=== PATIENT | female | born 1995 | race Caucasian/White ===

== ENCOUNTER 2018-09-09 19:22 | Emergency (ER) | payer OTHER, SELFPAY ==
[2018-09-09 21:33] LABS: Bilirubin Negative (Negative); Blood, Urine Negative (Negative); Clarity CLEAR (Clear); Glucose, Urine (Dipstick) Negative (Negative); Leukocyte Small (Negative); Nitrite Negative (Negative); Protein, Urine (Dipstick) Negative (Neg-Trace); Specific Gravity, Urine 1.016 (1.002-1.036)
[2018-09-09 21:34] LABS: Bacteria/HPF None Seen HPF (None Seen); Hyaline Casts/LPF 0-3 HYALINE CAST LPF (0-3 Hyaline); Pathc Cast-AUWi Flag 0.43 (0-2.49); RBC/HPF 0-3 HPF (0-3); Squamous Epithelial 0-3 HPF (0-3); WBC/HPF 0-3 HPF (0-3)
[2018-09-09 22:24] LABS: #Basophils 0.1 thou/uL (0.0-0.2); #Eosinphils 0.1 thou/uL (0.0-0.7); #Lymphocytes 2.5 thou/uL (1.20-3.40); #Monocytes 0.8 thou/uL (0.11-0.59); #Neutrophils 8.3 thou/uL (1.40-6.50); %Basophils 0.5 % (0.0-1.0); %Eosinophils 0.6 % (0.0-10.0); %Monocytes 6.5 % (0.0-10.0); %Neutrophils 71.3 % (42.0-75.0); Hemoglobin 14.2 g/dL (12.0-16.0); Mean Corpuscular HGB CONC 33.6 g/dL (32.0-36.0); Mean Corpuscular Hemoglobin 30.9 pg (27.0-31.0); Mean Corpuscular Volume 91.8 fL (78.0-98.0); Mean Platelet Volume 7.8 fL (7.4-10.4); Platelet Count 242 thou/uL (130-400); RBC Distribution Width 11.5 % (11.5-14.5); Red Blood Cell (RBC) Count 4.61 mill/uL (4.20-5.40); White Blood Cell (WBC) Count 11.7 thou/uL (4.8-10.8)
--- NOTE | 2018-09-09 23:17 | ULT ---
OBSTETRIC SONOGRAM WITH DUPLEX EVALUATION: 09/09/18 HISTORY: Early . Pain and bleeding. FINDINGS: Uterus measures up to 10.0 cm. Endometrial cavity contains two poles. Heart motion at 153 and 1 43 beats per minute. Measurements correlate with 7 weeks, 6 days and 7 weeks, 2 days gestational ages . Small yolk sacs are apparent. No free fluid in the pelvis. Right ovary is 3.0 cm and left is 3.2 cm. Good color and spectral doppler flow within each ovary. Dom inant follicle of the left ovary measures up to 3.1 cm. IMPRESSION: Twin intrauterine gestation with estimated ages of 7 weeks, 6 days and 7 weeks, 2 days. No evidence o f complication. Septated 3.1 cm left ovarian cyst. POS: [facility]
[2018-09-11 19:23] LABS: Chlamydia by PCR Not Detected (NotDetected); GC by PCR Not Detected (NotDetected)
== END 2018-09-10 00:07 | disposition home or self-care (01) ==
LOC: ERS 19:22
DX: O99.89 Other specified diseases and conditions complicating pregnancy, childbirth and the puerperium (principal); R10.30 Lower abdominal pain, unspecified; O99.341 Other mental disorders complicating pregnancy, first trimester; F32.9 Major depressive disorder, single episode, unspecified; F41.9 Anxiety disorder, unspecified; O99.331 Smoking (tobacco) complicating pregnancy, first trimester; F17.210 Nicotine dependence, cigarettes, uncomplicated; Z3A.01 Less than 8 weeks gestation of pregnancy
CPT/HCPCS: 36415; 36416; 76856; 81003; 81015; 84702; 85025; 86900; 86901; 87480; 87491; 87510; 87591; 87660

== ENCOUNTER 2018-09-27 02:21 | Emergency (ER) | payer OTHER ==
[2018-09-27 03:07] LABS: #Eosinphils 0.1 thou/uL (0.0-0.7); #Lymphocytes 2.6 thou/uL (1.20-3.40); #Monocytes 0.8 thou/uL (0.11-0.59); #Neutrophils 9.9 thou/uL (1.40-6.50); %Basophils 0.1 % (0.0-1.0); %Eosinophils 0.8 % (0.0-10.0); %Lymphocytes 19.3 % (21.0-51.0); %Monocytes 5.8 % (0.0-10.0); Hemoglobin 13.1 g/dL (12.0-16.0); Mean Corpuscular HGB CONC 34.7 g/dL (32.0-36.0); Mean Corpuscular Hemoglobin 31.6 pg (27.0-31.0); Mean Corpuscular Volume 91.1 fL (78.0-98.0); Platelet Count 248 thou/uL (130-400); RBC Distribution Width 11.5 % (11.5-14.5); Red Blood Cell (RBC) Count 4.15 mill/uL (4.20-5.40); White Blood Cell (WBC) Count 13.3 thou/uL (4.8-10.8)
[2018-09-27 03:17] LABS: Bilirubin Negative (Negative); Blood, Urine Negative (Negative); Clarity CLEAR (Clear); Glucose, Urine (Dipstick) Negative (Negative); Leukocyte Negative (Negative); Nitrite Negative (Negative); Protein, Urine (Dipstick) Negative (Neg-Trace); Specific Gravity, Urine 1.022 (1.002-1.036); Urobilinogen 0.2 mg/dL (0.2-1.0)
[2018-09-27 03:29] LABS: ALT (SGPT) 9 U/L (8-55); AST (SGOT) 11 U/L (5-34); Albumin 4.1 g/dL (3.5-5.0); Alkaline Phosphatase 71 U/L (40-150); Anion Gap 11 mmol/L (10-20); BUN (Urea Nitrogen) 12 mg/dL (7.0-18.7); Bilirubin, Total 0.2 mg/dL (0.2-1.2); Calc. Creatinine Clearance 0 mL/min (70-130); Calcium 9.5 mg/dL (7.8-10.44); Carbon Dioxide 21 mmol/L (22-29); Chloride 109 mmol/L (98-107); Estimated GFR-MDRD Greater than 90; Globulin 2.9 g/dL (2.4-3.5); Glucose 91 mg/dL (70-105); Potassium 3.4 mmol/L (3.5-5.1); Sodium 138 mmol/L (136-145)
[2018-09-27] MEDS ORDERED: Dicyclomine 20 MG TAB ONE (04:00)
[2018-09-27] MEDS ORDERED: Acetaminophen 500 MG TAB ONE (04:45)
[2018-09-27] MEDS ORDERED: Metoclopramide HCl 10 MG TAB ONE (04:45)
--- NOTE | 2018-09-27 08:34 | ULT ---
PRELIMINARY REPORT/[facility]/EMERGENTY AFTER-HOURS PROCEDURE US First Trimester, Transabdominal US First Trimester Additional Gestation, Transabdominal US Duplex Arterial/Venous of the Pelvis, Limited CLINICAL HISTORY: 23 years old, female; Pain; Other: Cramping at 10wks- twins; ; Patient HX: [place]/ di twins by prev scan TECHNIQUE: Real-time transabdominal obstetrical ultrasound of the maternal pelvis and a first trimester pregnanc y with image documentation. Real-time transabdominal obstetrical ultrasound with image documentation of the maternal pelvis and a n additional first trimester . Real-time duplex ultrasound scan of the pelvis integrating B-mode two-dimensional vascular structure, Doppler spectral analysis and color flow Doppler imaging. COMPARISON: No relevant prior studies available. FINDINGS: Transabdominal obstetrical ultrasound was performed. Duplex ultrasound scan with color Doppler flow a nd spectral waveform analysis was also performed for evaluation of pelvic and ovarian blood flow and torsion. There appears to be monochorionic diamniotic twin intrauterine with thin intertwin membrane . Fetus A Gestation: Living intrauterine gestation. heart rate 169 beats per minute. CRL 3.33 cm, 10w2d. Yolk sac visualized. Placenta/amniotic fluid: Cannot be adequately evaluated due to the early gestational age. Fetus B Gestation: Living intrauterine gestation. heart rate 152 beats per minute. CRL 3.21 cm, 10w1d. Placenta/amniotic fluid: Cannot be adequately evaluated due to the early gestational age. Uterus/cervix: No acute findings. No myometrial mass. Right ovary: No acute findings. No mass. Normal blood flow. No evidence of torsion. Left ovary: Left ovarian probable corpus luteum. Otherwise no mass. Free fluid: No free fluid. IMPRESSION: Viable twin intrauterine described above. No acute findings. Thank you for allowing us to participate in the care of your patient. Dictated and Authenticated by: Diomedes Bunn MD 09/27/2018 4:24 AM Central Time ([place] & [place]) FINAL REPORT OBSTETRIC SONOGRAM 1ST TRIMESTER TRANSABDOMINAL IMAGING DATE: 09/27/2018. TIME: Performed on an emergency basis at 0310 hours. HISTORY: Early . Pelvic pain. FINDINGS: Agree with the preliminary report by Dr. Bunn from [facility]. Twin intrauterine gestation i s confirmed with estimated gestational ages of 10 weeks 2 days and 10 weeks 1 day. No significant ab normalities are demonstrated. POS: [facility]
== END 2018-09-27 05:00 | disposition home or self-care (01) ==
LOC: ERS 02:21
DX: O99.89 Other specified diseases and conditions complicating pregnancy, childbirth and the puerperium (principal); R10.9 Unspecified abdominal pain; O99.331 Smoking (tobacco) complicating pregnancy, first trimester; F17.210 Nicotine dependence, cigarettes, uncomplicated; Z71.6 Tobacco abuse counseling; Z3A.10 10 weeks gestation of pregnancy
CPT/HCPCS: 76856; 80053; 81003; 84702; 85025; 87086; 99406

== ENCOUNTER 2018-10-18 21:31 | Emergency (ER) | payer OTHER ==
[2018-10-18 22:04] LABS: Bilirubin Negative (Negative); Blood, Urine Negative (Negative); Clarity CLEAR (Clear); Glucose, Urine (Dipstick) Negative (Negative); Leukocyte Negative (Negative); Nitrite Negative (Negative); Protein, Urine (Dipstick) Negative (Neg-Trace); Specific Gravity, Urine 1.006 (1.002-1.036); Urobilinogen 0.2 mg/dL (0.2-1.0)
[2018-10-18 22:21] LABS: #Eosinphils 0.1 thou/uL (0.0-0.7); #Lymphocytes 2.3 thou/uL (1.20-3.40); #Monocytes 0.6 thou/uL (0.11-0.59); #Neutrophils 7.7 thou/uL (1.40-6.50); %Basophils 0.4 % (0.0-1.0); %Eosinophils 1.2 % (0.0-10.0); %Lymphocytes 21.6 % (21.0-51.0); %Monocytes 5.2 % (0.0-10.0); %Neutrophils 71.7 % (42.0-75.0); Mean Corpuscular HGB CONC 34.4 g/dL (32.0-36.0); Mean Corpuscular Hemoglobin 31.6 pg (27.0-31.0); Mean Corpuscular Volume 91.7 fL (78.0-98.0); Mean Platelet Volume 7.6 fL (7.4-10.4); Platelet Count 225 thou/uL (130-400); RBC Distribution Width 11.5 % (11.5-14.5); White Blood Cell (WBC) Count 10.7 thou/uL (4.8-10.8)
[2018-10-18 22:44] LABS: ALT (SGPT) 9 U/L (8-55); AST (SGOT) 12 U/L (5-34); Albumin 3.9 g/dL (3.5-5.0); Alkaline Phosphatase 74 U/L (40-150); Anion Gap 11 mmol/L (10-20); BUN (Urea Nitrogen) 6 mg/dL (7.0-18.7); Bilirubin, Total 0.3 mg/dL (0.2-1.2); Calc. Creatinine Clearance 0 mL/min (70-130); Calcium 9.2 mg/dL (7.8-10.44); Carbon Dioxide 21 mmol/L (22-29); Chloride 108 mmol/L (98-107); Estimated GFR-MDRD Greater than 90; Globulin 3.2 g/dL (2.4-3.5); Glucose 96 mg/dL (70-105); Potassium 3.3 mmol/L (3.5-5.1); Protein, Total 7.1 g/dL (6.0-8.3); Sodium 137 mmol/L (136-145)
[2018-10-18] MEDS ORDERED: Ondansetron PF 4 MG/2 ML Vial ONE (22:48)
[2018-10-18] MEDS ORDERED: Potassium Chloride 20 MEQ TAB ONE (22:48)
== END 2018-10-18 23:55 | disposition home or self-care (01) ==
LOC: ERS 21:31
DX: O99.281 Endocrine, nutritional and metabolic diseases complicating pregnancy, first trimester (principal); E87.6 Hypokalemia; E86.0 Dehydration; O99.89 Other specified diseases and conditions complicating pregnancy, childbirth and the puerperium; R10.30 Lower abdominal pain, unspecified; Z3A.13 13 weeks gestation of pregnancy
CPT/HCPCS: 36415; 80053; 81003; 84702; 85025; 96361; 96374; J2405

== ENCOUNTER 2018-10-30 17:21 | Emergency (ER) | payer OTHER ==
[2018-10-30 18:02] LABS: #Eosinphils 0.2 thou/uL (0.0-0.7); #Lymphocytes 1.8 thou/uL (1.20-3.40); #Monocytes 0.5 thou/uL (0.11-0.59); #Neutrophils 8.1 thou/uL (1.40-6.50); %Basophils 0.2 % (0.0-1.0); %Eosinophils 1.5 % (0.0-10.0); %Lymphocytes 17.3 % (21.0-51.0); %Monocytes 4.3 % (0.0-10.0); %Neutrophils 76.7 % (42.0-75.0); Hemoglobin 11.9 g/dL (12.0-16.0); Mean Corpuscular HGB CONC 35.1 g/dL (32.0-36.0); Mean Corpuscular Hemoglobin 31.9 pg (27.0-31.0); Mean Corpuscular Volume 90.7 fL (78.0-98.0); Mean Platelet Volume 7.8 fL (7.4-10.4); Platelet Count 225 thou/uL (130-400); RBC Distribution Width 11.5 % (11.5-14.5); Red Blood Cell (RBC) Count 3.75 mill/uL (4.20-5.40); White Blood Cell (WBC) Count 10.5 thou/uL (4.8-10.8)
[2018-10-30 18:44] LABS: Bilirubin Negative (Negative); Blood, Urine Negative (Negative); Clarity CLEAR (Clear); Glucose, Urine (Dipstick) Negative (Negative); Leukocyte Negative (Negative); Nitrite Negative (Negative); Protein, Urine (Dipstick) Negative (Neg-Trace); Specific Gravity, Urine 1.007 (1.002-1.036); Urobilinogen 0.2 mg/dL (0.2-1.0)
== END 2018-10-30 19:22 | disposition home or self-care (01) ==
LOC: ERS 17:21
DX: O46.92 Antepartum hemorrhage, unspecified, second trimester (principal); Z3A.15 15 weeks gestation of pregnancy; O99.332 Smoking (tobacco) complicating pregnancy, second trimester; F17.210 Nicotine dependence, cigarettes, uncomplicated
CPT/HCPCS: 36415; 81003; 85025; 86900; 86901

== ENCOUNTER 2018-11-26 15:39 | Day surgery (SDC) | payer BC, OTHER ==
[2018-11-26 16:25] VITALS: BMI 33.6
--- NOTE | 2018-11-26 17:05 | PDOC.LDHP ---
Labor and Delivery H&P Chief complaint: other (Left upper quag pain at 18 weeks 6 days, twins) HPI: Patient of Dr Castillo' Location: L&D CC: Left upper quad discomfort, no real contractions HPI: 23 yo SAB1 (10 weeks) with known twins here for LLQ pain. No VB, no LOF, no fevers. Good FM. Known twin gestation Review of Systems: as per HPI Current gestational age (weeks): 18 (6 days) Grav: 4 Para: 2 OB History Details: SAB x 1 with D&C Current complications: other (Twins. rec not here) Past Medical History: Migraine HX Current medications: pre-nichole vitamins Previous surgical history: other (D&C) Allergies/Adverse Reactions: Allergies Allergy/AdvReac Type Severity Reaction Status Date / Time morphine Allergy Severe Anaphylaxis Verified 11/26/18 16:22 - Physical Exam Vital signs reviewed and normal: yes (116/64 afebrile) General: NAD Heart: RRR Lungs: CTAB Abdomen: gravid - Assessment Twins at 18 weeks 6 days with LLQ pain NOS - Plan Plan: observation in L&D (I have ordered CMP and cervical length as part of my eval. No evidence of RUQ pain so I did not order that sono. CX length will check for any shortening. No HX PTB. I have ordered 1 liter LR for conservative care (hydration).)
[2018-11-26] MEDS: Lactated Ringer's 1,000 ML IV SCH ×2 (17:21→18:23)
[2018-11-26 18:06] LABS: ALT (SGPT) 14 U/L (8-55); AST (SGOT) 13 U/L (5-34); Albumin 3.8 g/dL (3.5-5.0); Alkaline Phosphatase 90 U/L (40-150); Anion Gap 12 mmol/L (10-20); BUN (Urea Nitrogen) 5 mg/dL (7.0-18.7); Bilirubin, Total 0.3 mg/dL (0.2-1.2); Calc. Creatinine Clearance 223 mL/min (70-130); Calcium 9.1 mg/dL (7.8-10.44); Carbon Dioxide 19 mmol/L (22-29); Chloride 110 mmol/L (98-107); Estimated GFR-MDRD Greater than 90; Globulin 2.8 g/dL (2.4-3.5); Glucose 83 mg/dL (70-105); Potassium 3.5 mmol/L (3.5-5.1); Protein, Total 6.6 g/dL (6.0-8.3); Sodium 137 mmol/L (136-145)
--- NOTE | 2018-11-26 18:27 | PDOC.EVN ---
Event Note - Event Note Event Note: CMP normal
--- NOTE | 2018-11-26 18:40 | ULT ---
LIMITED OB ULTRASOUND 11/26/18 INDICATION: Evaluation for cervical length and cardiac activity, twin intrauterine gestation. FINDINGS: There is a live twin intrauterine gestation with cardiac activity documented for each twin, twi n A 139 beats per minute and twin B 140 beats per minute. The amniotic fluid volume is subjectively n ormal. Dedicated anatomic surveys are not performed. Cervical length is documented at 3.3 cm. The visualized placenta is located posteriorly. No discrete evidence for placenta previa. IMPRESSION: Live twin intrauterine gestation. Cervical length documented at 3.3 cm. As necessary, imaging followup may be obtained. POS: [facility]
--- NOTE | 2018-11-26 19:52 | PDOC.EVN ---
Event Note - Event Note Event Note: CX normal at 3.2cm OK for DC to home
== END 2018-11-26 20:05 | disposition home or self-care (01) ==
LOC: L&D/OP 15:39
PROVIDERS: ATTEND Obstetrics & Gynecology
DX: O99.89 Other specified diseases and conditions complicating pregnancy, childbirth and the puerperium (principal); R10.32 Left lower quadrant pain; O30.002 Twin pregnancy, unspecified number of placenta and unspecified number of amniotic sacs, second trimester; O99.352 Diseases of the nervous system complicating pregnancy, second trimester; G43.909 Migraine, unspecified, not intractable, without status migrainosus; Z3A.18 18 weeks gestation of pregnancy; Z79.82 Long term (current) use of aspirin; Z79.899 Other long term (current) drug therapy; Z88.5 Allergy status to narcotic agent
CPT/HCPCS: 36415; 76815; 80053; 96360; 96361; 99282

== ENCOUNTER 2018-12-08 18:33 | Day surgery (SDC) | payer BC, OTHER ==
[2018-12-08 19:10] VITALS: BMI 33.4
--- NOTE | 2018-12-08 19:33 | PDOC.EVN ---
Event Note - Event Note Event Note: H&P Dictated on 12/08/18 at 1923 Here for vaginal pressure, known twins at 20 weeks 4 days Patient seen at bedside
[2018-12-08 20:47] LABS: Bilirubin Negative (Negative); Blood, Urine Negative (Negative); Clarity CLOUDY (Clear); Glucose, Urine (Dipstick) Negative (Negative); Leukocyte Small (Negative); Nitrite Negative (Negative); Protein, Urine (Dipstick) Negative (Neg-Trace); Urobilinogen 0.2 mg/dL (0.2-1.0)
[2018-12-08 20:49] LABS: Bacteria/HPF None Seen HPF (None Seen); Hyaline Casts/LPF 0-3 HYALINE CAST LPF (0-3 Hyaline); RBC/HPF 0-3 HPF (0-3); Squamous Epithelial 0-3 HPF (0-3); WBC/HPF 0-3 HPF (0-3)
--- NOTE | 2018-12-08 20:59 | PDOC.EVN ---
Event Note - Event Note Event Note: Sono with CX 4cm...I relayed the info to the patient. UA pending.
--- NOTE | 2018-12-08 20:59 | PDOC.EVN ---
Event Note - Event Note Event Note: UA negative...not impressive for UTI OK for outpatient follow up
--- NOTE | 2018-12-08 21:13 | ULT ---
ULTRASOUND OBSTETRICAL LIMITED: 12/08/18 at 8:20 p.m. HISTORY: 23-year-old female with twin second trimester gestation presents with low abdominal/pelvic pressure t ype of pain. FINDINGS: Maternal cervix: 4.5 cm in length and closed. No placenta previa. Twin A: (closest to cervix): lie: Breech. Maternal left. heart rate: 141 bpm. Twin B: lie: Cephalic. Maternal right. heart rate: 158 bpm. IMPRESSION: 1. Second trimester twin gestation. 2. Maternal cervix is closed and 4.5 cm in length. POS: [facility]
--- NOTE | 2018-12-09 01:27 | HP ---
TIME OF EVALUATION: 1914. LOCATION: Labor and Delivery Triage in Bed A. CHIEF COMPLAINT: 20 weeks' monochorionic diamniotic twins with pelvic pressure. This is a patient of Dr. Castillo. HISTORY OF PRESENT ILLNESS: This is a 23-year-old , 4, para 2, with (spontaneous vaginal delivery) x2 in the past, with a SAB x1 in the past, who is now at 20 weeks and 4 days, who also has a known monochorionic diamniotic gestation. She sees Dr. Castillo at the office. She was concerned because she was having vaginal pressure, but no leakage of fluid, no vaginal bleeding, and no recent trauma. No recent intercourse. She does feel baby moving, but is not able to distinguish one from the other at this time. REVIEW OF SYSTEMS: Complete review of systems was checked and is otherwise negative unless specified in the HPI. PAST MEDICAL HISTORY: Otherwise unremarkable. PAST SURGICAL HISTORY: None. ALLERGIES: MORPHINE. PAST OBSTETRICAL HISTORY: Significant for vaginal deliveries x2. PHYSICAL EXAMINATION: VITAL SIGNS: She is afebrile and normotensive with a blood pressure of 112/70. GENERAL: Clinically, she is in no acute distress. ABDOMEN: Soft, nontender, and size appropriate for gestational age, although the uterus is slightly larger due to the twins at about 23 weeks or so. PELVIC: Exam was deferred and on hold pending the evaluations that we will discuss. heart tones by Doppler are noted x2. INTERVENTIONS ORDERED: I have ordered a vaginal cervical length as well as a clean-catch urine for urinalysis. ASSESSMENT: This is a multigravida, who is at 20 weeks and 4 days with vaginal pressure with known monochorionic diamniotic twins. My index of suspicion for true labor at this time is low. PLAN: 1. Transvaginal ultrasound. 2. She is out of the gestational age range for fibronectin which usually begins at about 23 weeks' gestation or so. 3. I have ordered an ultrasound to confirm the heart tones x2. 4. I will do a cervical ultrasound length and if normal, she has a decreased risk of imminent delivery in the next 7-10 days. 5. The patient declines a catheterized urine, so we will do a clean-catch for urinalysis. Job ID: [id number]
== END 2018-12-08 21:15 | disposition home or self-care (01) ==
LOC: L&D/OP 18:33
PROVIDERS: ATTEND Obstetrics & Gynecology
DX: O99.89 Other specified diseases and conditions complicating pregnancy, childbirth and the puerperium (principal); R10.2 Pelvic and perineal pain; O32.1XX1 Maternal care for breech presentation, fetus 1; O30.032 Twin pregnancy, monochorionic/diamniotic, second trimester; Z3A.20 20 weeks gestation of pregnancy; Z79.82 Long term (current) use of aspirin; Z79.899 Other long term (current) drug therapy; Z88.5 Allergy status to narcotic agent
CPT/HCPCS: 76815; 81003; 81015; 99282

== ENCOUNTER 2019-01-09 19:27 | Day surgery (SDC) | payer BC, OTHER ==
[2019-01-09 20:39] VITALS: BP 119/72; TEMP 98.7
--- NOTE | 2019-01-09 20:39 | PDOC.LDHP ---
Labor and Delivery H&P Chief complaint: other (S/P fall against bathtub as she was taking her child a bath, hit abdomen on side) HPI: CC: fall unto side in Bathroom at 1855 Location: L&D Triage Time: [address] Castillo Patient with known twins, [place] HPI: 23 yo W x 2 in past now at 25 weeks 1 day with EDC 04/23/19 (or maybe 04/25) s/p minor fall onto side as she slipped in bathroom, hit side against tub edge. Loss of possible urine at the time of slip, no large gush of water, no further leakage, no VB. No contractions, but some cramping. Denies head trauma or partner violence. Review of Systems: Completed and as per HPI Current gestational age (weeks): 25 (1 day) Due date: 04/23/19 Dating criteria: last menstrual period Grav: 4 Para: 2 OB History Details: x 2, D&C for SAB March 2018 Current complications: mono/di twins Abnormal US findings: No Current medications: pre- vitamins Previous surgical history: other (D&C) Allergies/Adverse Reactions: Allergies Allergy/AdvReac Type Severity Reaction Status Date / Time morphine Allergy Severe Anaphylaxis Verified 11/26/18 16:22 Social history: none - Physical Exam Vital signs reviewed and normal: yes (110s/60s Pulse 80s) General: NAD Heart: RRR Lungs: CTAB Abdomen: other (no contusions; FHTS by opplers 130/140s) Extremeties: no edema [place] contractions every: none - Assessment [place] twins at 25 weeks s/p fall onto side at 1900 or so. Possible leak of urine x 1 at time of fall, no continued leakage - Plan Plan: observation in L&D (I have seen and evaluated the patient. I have called for: RH type, cervical length check (although ACOG states CL checks in twins may not be useful- I ordered it to be conservative); Amnisure (I do not suspect ROM as HX most compatible with loss of urine at incident)- I will continue to monitor. Sono will also check and confirm 2 FHTs. Per ACOG, FFN not well studieed in twins, and my index of suspcion for PTL is very low. We will normally OBS for 6 hours, but in this case, 6 hours will be 304AM. To not send her home in early AM hours, we will monitor overnight until 0600. This was reviewed with the patient in detail.)
[2019-01-09 20:51] LABS: Amnisure Internal Control QC ACCEPTABLE (ACCEPTABLE); Amnisure Test No Membranes Rupture (No Rupture)
--- NOTE | 2019-01-09 20:52 | PDOC.EVN ---
Event Note - Event Note Event Note: Amnisure collected with blood tinged contamination on swab, concerned may be false pos. Await results...if pos...we will SSE to eval.
--- NOTE | 2019-01-09 20:55 | PDOC.EVN ---
Event Note - Event Note Event Note: is negative, as expected
[2019-01-09 20:56] VITALS: BMI 52.9
--- NOTE | 2019-01-09 21:48 | PDOC.EVN ---
Event Note - Event Note Event Note: Sono with cervical length greater than 3, mnax 4cm FHTs x 2 normal x 2
--- NOTE | 2019-01-09 22:14 | ULT ---
OB ULTRASOUND LIMITED: HISTORY: Twin . Status post fall. FINDINGS: The cervical length measures 3.3 cm. A live intrauterine twin is seen. Twin A is to the m aternal left, and twin B is to the maternal right. Twin A has a vertex presentation, and twin B has a breech presentation. The heart rate of twin A is 145 beats per minute, and twin B is 139 gena ts per minute. The placenta is posterior. IMPRESSION: Live intrauterine twin . POS: [facility]
--- NOTE | 2019-01-09 23:00 | PDOC.EVN ---
Event Note - Event Note Event Note: RH pos
== END 2019-01-10 06:00 | disposition home or self-care (01) ==
LOC: L&D/OP 19:27
PROVIDERS: ATTEND Obstetrics & Gynecology
DX: O99.89 Other specified diseases and conditions complicating pregnancy, childbirth and the puerperium (principal); R10.9 Unspecified abdominal pain; O30.032 Twin pregnancy, monochorionic/diamniotic, second trimester; Z3A.25 25 weeks gestation of pregnancy; Z79.82 Long term (current) use of aspirin; Z79.899 Other long term (current) drug therapy; Z88.5 Allergy status to narcotic agent; W01.198A Fall on same level from slipping, tripping and stumbling with subsequent striking against other object, initial encounter; Y93.89 Activity, other specified; Y92.002 Bathroom of unspecified non-institutional (private) residence as the place of occurrence of the external cause
CPT/HCPCS: 36415; 76815; 84112; 86900; 86901; 99283

== ENCOUNTER 2019-01-20 13:57 | Day surgery (SDC) | payer BC, OTHER ==
[2019-01-20 14:28] VITALS: BMI 34.3
--- NOTE | 2019-01-20 16:52 | PRG ---
DATE OF SERVICE: 01/20/2019 PRIMARY HEAVY MACHINERY OPERATOR: Dr. Ishmael Castillo. CHIEF COMPLAINT: Shortness of breath and swelling. HISTORY OF PRESENT ILLNESS: The patient is a 23-year-old, G4, P2, female with monochorionic-diamniotic twin gestation at 26 weeks and 5 days, who was sent to Labor and Delivery for evaluation after having a telemedicine visit with her maternal medicine doctor today. The patient had complained that she has been feeling more short of breath than usual in the last couple of days and more tired and has been experiencing swelling and was recommended to come here. The patient further reports that she has been having headaches and has been having a lot of pelvic pressure. She has difficulty getting comfortable and has pain with movement in the bed and getting out of the bed, feels like the "babies are going to fall out." She does report that she had an ultrasound done today in clinic, that measured a cervical length of 2.7 cm. She reports that she was recently about the same time the symptoms started placed on medication that she takes, that was prescribed to her for heartburn. She reports her heartburn has improved since starting it. The patient denies fever, fall, or chest pain. She does report shortness of breath that she describes as difficulty taking a deep breath. She also reports that she feels like she tires more easily. She reports she has had nausea, but no vomiting. She denies constipation or diarrhea. She denies any new rashes. She denies hip problems, knee problems, or muscle weakness. Denies vaginal bleeding. She does report she has had some mucousy discharge earlier, but was told it may be from her mucus plug. Denies urinary urgency. Denies leakage of fluid. PAST MEDICAL HISTORY: Anxiety. PAST SURGICAL HISTORY: D and C. ALLERGIES: MORPHINE. MEDICATIONS: 1. Prilosec, it is our guess. 2. vitamin. SOCIAL HISTORY: Denies drug, alcohol, or tobacco use. OB LABORATORY DATA: Blood type O positive. One-hour Glucola 74. She is rubella immune. Antibody screen is negative. HIV and RPR nonreactive. REVIEW OF SYSTEMS: Per HPI. PHYSICAL EXAMINATION: VITAL SIGNS: Blood pressure 120/56 and 117/58, heart rate 98, saturating 98% on room air, respiratory rate 18 to 20, and temperature 98.5. GENERAL: She appears to be in no acute distress. She is alert, oriented, cooperative, and pleasant to interact with. HEAD: Normocephalic and atraumatic. LUNGS: Clear to auscultation bilaterally. HEART: Regular rate and rhythm. ABDOMEN: Soft, gravid, nontender. EXTREMITIES: Nontender with minimal edema. GENITOURINARY: Her cervix is closed per nursing staff, and the patient has a cervical length of 2.7 cm per the patient from an ultrasound today. OBSTETRIC: heart tracing demonstrates a baby A and baby B distinct from each other, but both with baseline in the 130s with moderate long-term variability, appropriate for gestational age. No contractions seen on the monitor. ASSESSMENT AND PLAN: The patient is a 23-year-old, G4, P2 female with an intrauterine at 26 weeks and 6 days, who has been experiencing some fatigue, shortness of breath, and worsening swelling. Sometimes, she seems to be timed to the institute of what looks to be Prilosec. She has no evidence of pulmonary disease as is having good respiratory effort and rate and clear lungs to auscultation, saturating appropriately and has virtually no swelling at the time of exam today, and the patient is able to breathe without any difficulty, lying supine during most of our examination. The patient may be having side affects to the heartburn medication that she is taking as reviewing side affects more, ones include nausea, headache, drowsiness, so we have recommended to Ms. Carmichael, although the medication has improved her heartburn, had recommended discontinuing it for a period of time to see if she begins to feel better again as timing of her symptoms seem to be correlating with institute of her medication. We have also given her recommendations if she would like to try something else, it is ranitidine or Zantac over the counter, and to see if that can give her a sufficient release without this and still feel side effect free. The patient has an appointment to see Dr. Castillo in 2 weeks, which we have encouraged that she keep. She has also been given labor precautions and fetuses are appropriate for gestational age and were evaluated in the clinic today by Maternal Medicine. Job ID: [id number]
== END 2019-01-20 16:15 | disposition home or self-care (01) ==
LOC: L&D/OP 13:57
PROVIDERS: ATTEND Obstetrics & Gynecology
DX: O99.89 Other specified diseases and conditions complicating pregnancy, childbirth and the puerperium (principal); R06.02 Shortness of breath; O26.812 Pregnancy related exhaustion and fatigue, second trimester; O30.032 Twin pregnancy, monochorionic/diamniotic, second trimester; O99.342 Other mental disorders complicating pregnancy, second trimester; F41.9 Anxiety disorder, unspecified; Z3A.26 26 weeks gestation of pregnancy; Z79.899 Other long term (current) drug therapy; Z88.5 Allergy status to narcotic agent
CPT/HCPCS: 99282

== ENCOUNTER 2019-01-23 14:51 | Observation (INO) | payer BC, OTHER ==
[~2019-01-23 14:51] MED LIST: ISOVUE-370 76%-LOCM 1 ML ONE
[2019-01-23 15:23] VITALS: BMI 34.4
[2019-01-23 16:08] LABS: #Eosinphils 0.1 thou/uL (0.0-0.7); #Lymphocytes 1.8 thou/uL (1.20-3.40); #Monocytes 0.7 thou/uL (0.11-0.59); #Neutrophils 9.9 thou/uL (1.40-6.50); %Basophils 0.4 % (0.0-1.0); %Eosinophils 1.1 % (0.0-10.0); %Lymphocytes 14.1 % (21.0-51.0); %Monocytes 5.3 % (0.0-10.0); %Neutrophils 79.1 % (42.0-75.0); Hemoglobin 10.8 g/dL (12.0-16.0); Mean Corpuscular HGB CONC 34.6 g/dL (32.0-36.0); Mean Corpuscular Hemoglobin 31.4 pg (27.0-31.0); Mean Corpuscular Volume 90.7 fL (78.0-98.0); Mean Platelet Volume 8.1 fL (7.4-10.4); Platelet Count 211 thou/uL (130-400); RBC Distribution Width 12.2 % (11.5-14.5); Red Blood Cell (RBC) Count 3.44 mill/uL (4.20-5.40); White Blood Cell (WBC) Count 12.5 thou/uL (4.8-10.8)
[2019-01-23 16:32] LABS: Bilirubin Negative (Negative); Blood, Urine Negative (Negative); Clarity CLEAR (Clear); Glucose, Urine (Dipstick) Negative (Negative); Leukocyte Trace (Negative); Nitrite Negative (Negative); Protein, Urine (Dipstick) Negative (Neg-Trace); Specific Gravity, Urine 1.017 (1.002-1.036); Urobilinogen 0.2 mg/dL (0.2-1.0); pH, Urine 6.5 (5.0-9.0)
[2019-01-23 16:32] LABS: ALT (SGPT) Less than 7 U/L (8-55); AST (SGOT) 9 U/L (5-34); Albumin 3.4 g/dL (3.5-5.0); Alkaline Phosphatase 112 U/L (40-150); Anion Gap 13 mmol/L (10-20); BUN (Urea Nitrogen) 5 mg/dL (7.0-18.7); Bilirubin, Total 0.2 mg/dL (0.2-1.2); Calc. Creatinine Clearance 228 mL/min (70-130); Calcium 8.9 mg/dL (7.8-10.44); Carbon Dioxide 17 mmol/L (22-29); Chloride 109 mmol/L (98-107); Estimated GFR-MDRD Greater than 90; Glucose 93 mg/dL (70-105); Potassium 3.3 mmol/L (3.5-5.1); Protein, Total 6.4 g/dL (6.0-8.3); Sodium 136 mmol/L (136-145)
[2019-01-23 16:35] LABS: Bacteria/HPF None Seen HPF (None Seen); Hyaline Casts/LPF 4-6 HYALINE CAST LPF (0-3 Hyaline); Pathc Cast-AUWi Flag 0.87 (0-2.49); RBC/HPF 0-3 HPF (0-3)
--- NOTE | 2019-01-23 17:26 | RAD ---
CHEST TWO VIEWS: HISTORY: Shortness of breath. TECHNIQUE: PA and lateral views of the chest are obtained. FINDINGS: The lungs are well aerated. No evidence of active intrathoracic disease is seen. No evidence of eff usions, pneumonia or pneumothorax is seen. IMPRESSION: Unremarkable two views chest. POS: [facility]
--- NOTE | 2019-01-23 18:10 | PDOC.FPRHP ---
- History of Present Illness Chief Complaint: shortness of breath History of Present Illness: Asked by Dr. Sarmiento to evaluate the patient. 23 y/o with m/d twins presents with 1.5 week history of shortness of breath. Started suddenly when she was sitting down and comes on at random times during they day. No orthopnea /pnd. No cp or hemoptysis. No fevers, chills, ST or myalgias. Does feel like she gets short of breath quicker with exertion. She has no new leg swelling or pain. A 10 point review of systems is negative except as stated in the HPI. The exception is that she has some bilateral hand numbness that is worse when doing activities with her hands. - Allergies/Adverse Reactions Allergies Allergy/AdvReac Type Severity Reaction Status Date / Time morphine Allergy Severe Anaphylaxis Verified 01/09/19 20:57 - Home Medications Medication Instructions Recorded Confirmed Type Acetaminophen [Tylenol] 1,000 mg PO Q6HR PRN 11/26/18 01/23/19 History Aspirin Chewable 81 mg PO DAILY 11/26/18 01/23/19 History Vit 108/Iron/Folic AC 1 tab PO DAILY 11/26/18 01/23/19 History [ One Tablet] Iron 1 tablet PO DAILY 01/20/19 01/23/19 History - History PMHx: Denies PSHx: D&C FHx: Early SD in Mother, with ?history of "clots." Early SD in a 2nd deg relative as well. Social: Denies MIRNA ALL to Morphine - Vital signs BP: [] HR: [] RR: [] Tmax: [] Pox: []% on [] Wt: [] - Physical Exam Constitutional: NAD, awake, alert and oriented HEENT: normocephalic and atraumatic, conjunctiva clear Neck: supple, trachea midline Chest: no-tender to palpation Heart: other (tachy, without murmur, no sig LE edema) Lungs: CTAB, no respiratory distress, good air movement, no retractions Abdomen: soft, non-tender, other (gravid) Musculoskeletal: normal structure, normal tone Neurological: no focal deficit, CN II-XII intact, other (not examined for CTS) Skin: no rash/lesions, good turgor, capillary refill <2 seconds Heme/Lymphatic: no unusual bruising or bleeding, no purpura, no petechia Psychiatric: normal mood and affect, good judgment and insight FMR H&P: Results - Labs Result Diagrams: 01/23/19 15:41 01/23/19 15:41 Lab results: WBC 12.5 thou/uL (4.8-10.8) H 01/23/19 15:41 Hgb 10.8 g/dL (12.0-16.0) L 01/23/19 15:41 Hct 31.2 % (36.0-47.0) L 01/23/19 15:41 MCV 90.7 fL (78.0-98.0) 01/23/19 15:41 Plt Count 211 thou/uL (130-400) 01/23/19 15:41 Neutrophils % 79.1 % (42.0-75.0) H 01/23/19 15:41 Sodium 136 mmol/L (136-145) 01/23/19 15:41 Potassium 3.3 mmol/L (3.5-5.1) L 01/23/19 15:41 Chloride 109 mmol/L (98-107) H 01/23/19 15:41 Carbon Dioxide 17 mmol/L (22-29) L 01/23/19 15:41 BUN 5 mg/dL (7.0-18.7) L 01/23/19 15:41 Creatinine 0.50 mg/dL (0.6-1.1) L 01/23/19 15:41 Glucose 93 mg/dL (70-105) 01/23/19 15:41 Calcium 8.9 mg/dL (7.8-10.44) 01/23/19 15:41 Total Bilirubin 0.2 mg/dL (0.2-1.2) 01/23/19 15:41 AST 9 U/L (5-34) 01/23/19 15:41 ALT Less than 7 U/L (8-55) L 01/23/19 15:41 Alkaline Phosphatase 112 U/L (40-150) 01/23/19 15:41 B-Natriuretic Peptide 17.4 pg/mL (0-100) 01/23/19 15:41 Serum Total Protein 6.4 g/dL (6.0-8.3) 01/23/19 15:41 Albumin 3.4 g/dL (3.5-5.0) L 01/23/19 15:41 Urine Ketones Negative mg/dL (Negative) 01/23/19 16:17 Urine Blood Negative (Negative) 01/23/19 16:17 Urine Nitrite Negative (Negative) 01/23/19 16:17 Ur Leukocyte Esterase Trace (Negative) H 01/23/19 16:17 Urine RBC 0-3 HPF (0-3) 01/23/19 16:17 Urine WBC 4-6 HPF (0-3) H 01/23/19 16:17 Ur Squamous Epith Cells 7-10 HPF (0-3) H 01/23/19 16:17 Urine Bacteria None Seen HPF (None Seen) 01/23/19 16:17 FMR H&P: A/P - Problem List (1) Shortness of breath Current Visit: Yes Status: Acute Code(s): R06.02 - SHORTNESS OF BREATH - Plan Dx includes functional 2/2 , ACS, PE, PTX, CHF, other. Send for TnI, BNP, CXR, and ECG. Consider CTA if negative CXR. I have discussed with Dr. Sarmiento in detail. FMR H&P: Upper Level - Plan Date/Time: 01/23/19 1808 I, [], have evaluated this patient and agree with findings/plan as outlined by planner intern resident. Pertinent changes/additions are listed here.
[2019-01-23] MEDS ORDERED: Docusate 100 MG CAP PO PRN (18:21)
[2019-01-23] MEDS ORDERED: Promethazine HCl 25 MG/ML VIAL IM PRN (18:21)
[2019-01-23] MEDS ORDERED: Ondansetron PF 4 MG/2 ML Vial IVP PRN (18:21)
[2019-01-23] MEDS ORDERED: Sodium Chloride 0.9% 10 ML ONE (23:10)
--- NOTE | 2019-01-23 23:15 | PDOC.EVN ---
Event Note - Event Note Event Note: CTSP for episode of SOB on floor. O2 sat on RA= 92% per nurse report. O2 at 2L by NC started. Will consult Medicine Hospitalist and proceed with PE workup.
--- NOTE | 2019-01-23 23:26 | PDOC.EVN ---
Event Note - Event Note Event Note: We have been consulted for chest pain, tachycardia and SOB with saturation of 92 % on RA and feeling that she is going to pass out, discussed with OB, d-dimer is positive although might be misleading in , will proceed with CT angio r/o pe, given persistent and worsening symptoms and high risk of complications if left undiagnosed, and untreated. If negative will do echo in am and follow cardiology consultation since pt has hx of grandfather dying at 28 y/o from acute CA and mother had an acute CA as well at the age of 28. We will await results and treat accordingly, this details have been discussed at bedside with patient in details including risk/benefits by myself and DIRECTOR STYLE Dr. Sarmiento , all questions answered, she verbalized understanding and agreed to proceed with work up plan, full consultation note pending.
[2019-01-23] MEDS ORDERED: Sodium Chloride 0.9% 1,000 ML IV SCH (23:30)
--- NOTE | 2019-01-24 00:46 | HP ---
REGULAR PHYSICIAN: Ishmael Castillo MD ADMITTING PHYSICIAN: Wallace Sarmiento MD CHIEF COMPLAINT: Shortness of breath, malaise, fatigue. HISTORY OF PRESENT ILLNESS: Ms. Carmichael is a 23-year-old white G4, P2, AB1 with an estimated date of confinement of 04/23/2019, who presents with a 1-week history of intermittent shortness of breath, fatigue and malaise. She denies contractions, vaginal bleeding or ruptured membranes. Her care has been with Dr. Castillo's office and she has a known twin gestation. PAST OBSTETRICAL HISTORY: Vaginal delivery x2 at term and a miscarriage requiring D and C. PAST MEDICAL HISTORY: Includes hypoglycemia. PAST SURGICAL HISTORY: D and C as above. ALLERGIES: MORPHINE, WHICH SHE STATES MAKES HER SHORT OF BREATH. CURRENT MEDICATIONS: 1. vitamins. 2. Aspirin 81 mg daily. 3. Iron supplementation. SOCIAL HISTORY: She denies tobacco, alcohol, or drug use. FAMILY HISTORY: Includes early heart disease in her mother. REVIEW OF SYSTEMS: Positive for intermittent shortness of breath, malaise and fatigue. She denies fever, chills, nausea, vomiting, ruptured membranes, vaginal bleeding or contractions. PHYSICAL EXAMINATION: VITAL SIGNS: Blood pressure initially in triage was 116/74. Initial pulse is 112 beats per minute. She is resting now with heart rate in 100. Respirations 20. Temperature 98.2. Saturation on room air is 98%. CHEST: Clear to auscultation. CARDIOVASCULAR: Regular rate and rhythm. ABDOMEN: Soft, nontender, and gravid. PELVIC: Deferred. heart rate tracing shows reassuring tracing of both twins. No contractions were seen. LABORATORY DATA: White count 12.5, hemoglobin and hematocrit 10.8 and 31.2. Platelet count 211. Sodium 136, potassium 3.3, creatinine 0.5, total bilirubin 0.2, AST and ALT are 9 and less than 7 respectively. Alkaline phosphatase is 112. Troponin is less than 0.010 and BNP is 17.4. Urinalysis shows a specific gravity of 1.017 with negative protein, negative glucose, negative ketones. EKG shows no acute changes. I have reviewed this with Dr. Gianfranco Kennedy, [facility]. Her chest x-ray is clear. ASSESSMENT: 1. Twenty-seven week twin intrauterine . 2. Shortness of breath, malaise and fatigue with normal laboratories. PLAN: I spoke with Dr. Castillo about this. He would like to put her in for observation at this time and obtain a cardiology consult to evaluate her symptoms. Job ID: [id number]
[2019-01-24] MEDS: Acetaminophen 325 MG TAB PO PRN ×2 (01:08→21:37)
[2019-01-24] MEDS: Sodium Chloride 0.9% 1,000 ML IV SCH ×2 (02:12→12:29)
--- NOTE | 2019-01-24 03:37 | CON ---
DATE OF CONSULTATION: REFERRING PHYSICIAN: Dr. Sarmiento. REASON FOR REFERRAL: Shortness of breath and now with chest pain. HISTORY OF PRESENT ILLNESS: Ms. Carmichael is a pleasant 23-year-old woman who is 27 weeks with twins, who presented earlier today with complaints of shortness of breath. She was admitted under the OB Service and underwent laboratory studies that were notable for white count of 12.5. A D-dimer was done that was elevated at 0.79, however by guidelines for , this was unremarkable. Electrolytes showed low potassium of 3.3. Kidney function unremarkable. LFTs normal. A BNP was done, which was normal at 17.4. The patient was being monitored and showed no signs of any distress or contractions. A consult was placed for Cardiology and she is awaiting review. The patient has not developed chest pain in the center of her chest and she reports increased pain with deep inspiration. She denies having any cough or hemoptysis. She has not had a fever, chills, or sweats. Denies having any headaches, but does report lightheadedness with shortness of breath earlier today. Denies abdominal pain or cramping. All other review of systems negative. REVIEW OF SYSTEMS: All other review of systems apart from those mentioned in the HPI are negative. PAST MEDICAL HISTORY: Hypoglycemia. PAST SURGICAL HISTORY: D and C following a miscarriage. Vaginal delivery x2. SOCIAL HISTORY: Denies any tobacco use, alcohol use, or illicit drug use. FAMILY HISTORY: Very strong family history of CAD. Her mother had an MS at age 29. ALLERGIES: MORPHINE. CURRENT MEDICATIONS: 1. Aspirin. 2. Tylenol. 3. Iron. 4. vitamin. PHYSICAL EXAMINATION: GENERAL: The patient appears well developed and well nourished, is in no acute distress. VITAL SIGNS: Temperature 98.1, pulse 95, respirations 20; O2 saturation 92%, however, increased to 99% on 2 L of oxygen by nasal cannula; and blood pressure 120/68. HEENT: Normocephalic and atraumatic. Pupils are equal, round, and reactive to light. Sclerae are without icterus. Oropharynx is clear. NECK: Supple without lymphadenopathy. LUNGS: Clear to auscultation bilaterally without wheezes, rales, or rhonchi. CARDIAC: Regular rate and rhythm without audible murmurs, rubs, or gallops. No chest wall tenderness. ABDOMEN: Soft, nontender. NEUROLOGIC: Alert and oriented x3. No focal deficits. EXTREMITIES: No edema or calf tenderness. LABORATORY DATA: As mentioned above in HPI. IMAGING DATA: Chest x-ray done on initial presentation again showed no acute cardiopulmonary process. IMPRESSION AND PLAN: Ms. Carmichael is a very pleasant 23-year-old woman who is 27 weeks with twins, presenting with shortness of breath and lightheadedness that started earlier today. The patient was admitted for observation and there seems to be no signs of distress and no contractions. She has developed chest pain; therefore, serial troponins have been requested. We have also requested a 12-lead EKG. She is already awaiting a Cardiology consult. Given the elevated D-dimer and low saturations of 92% on room air, we will request a CT angio of the chest to rule out PE. The patient will be transferred to telemetry for monitoring. She is stable at this present time and saturations improved to 99% on 2 L of oxygen. The patient's care was discussed with Dr. Arenas, who has seen and assessed the patient. He is in agreement with plan as described above. Job ID: [id number]
[2019-01-24 05:46] LABS: #Eosinphils 0.2 thou/uL (0.0-0.7); #Lymphocytes 2.5 thou/uL (1.20-3.40); #Monocytes 0.9 thou/uL (0.11-0.59); #Neutrophils 9.8 thou/uL (1.40-6.50); %Basophils 0.1 % (0.0-1.0); %Eosinophils 1.3 % (0.0-10.0); %Lymphocytes 18.6 % (21.0-51.0); %Monocytes 6.4 % (0.0-10.0); %Neutrophils 73.6 % (42.0-75.0); Hemoglobin 10.3 g/dL (12.0-16.0); Mean Corpuscular HGB CONC 34.3 g/dL (32.0-36.0); Mean Corpuscular Hemoglobin 32.1 pg (27.0-31.0); Mean Corpuscular Volume 93.5 fL (78.0-98.0); Mean Platelet Volume 7.9 fL (7.4-10.4); Platelet Count 202 thou/uL (130-400); RBC Distribution Width 12.3 % (11.5-14.5); White Blood Cell (WBC) Count 13.3 thou/uL (4.8-10.8)
[2019-01-24 05:52] LABS: Anion Gap 12 mmol/L (10-20); BUN (Urea Nitrogen) 5 mg/dL (7.0-18.7); Calc. Creatinine Clearance 224 mL/min (70-130); Calcium 8.9 mg/dL (7.8-10.44); Carbon Dioxide 19 mmol/L (22-29); Chloride 110 mmol/L (98-107); Estimated GFR-MDRD Greater than 90; Glucose 78 mg/dL (70-105); Potassium 3.3 mmol/L (3.5-5.1); Sodium 138 mmol/L (136-145)
--- NOTE | 2019-01-24 08:05 | CT ---
PRELIMINARY REPORT/[facility]/EMERGENTY AFTER-HOURS PROCEDURE CT Angiography Chest With Contrast EXAM DATE/TIME: 01/24/2019 12:10 AM CLINICAL HISTORY: 23 years old, female; Signs and symptoms; Dyspnea; Patient HX: PT is 27 weeks preg with twins. PT has been having low o2 sats, chest pain and SOB x1 week. PT also reports her BP has been high. R/O pe. P T shielded TECHNIQUE: Axial computed tomographic angiography images of the chest with intravenous contrast using CT angiogr aphy protocol. MIP reconstructed images were created and reviewed. COMPARISON: No relevant prior studies available. FINDINGS: Pulmonary arteries: No visible acute pulmonary embolism. Aorta: No aortic dissection. Lungs: There is a 3 mm indeterminate right lower lobe pulmonary nodule.For patients at low risk (mini mal or absent history of smoking and of other known risk factors), no routine follow-up is indicated. For patients at high risk (history of smoking or of other known risk factors), consider optional CT at 12 months. (MacMahon, et al., Fleischner Society, 2017). Pleural space: Normal. No pneumothorax. No pleural effusion. Heart: Normal. No cardiomegaly. No pericardial effusion. Mediastinum: There is a small hiatal hernia. Kidneys and ureters: There may be right hydronephrosis or right renal peripelvic cyst. Lymph nodes: Unremarkable. No enlarged lymph nodes. Bones/joints: Unremarkable. No acute fracture. Soft tissues: Unremarkable. IMPRESSION: 1. There is a small hiatal hernia. 2. No visible acute pulmonary embolism. 3. There is a 3 mm indeterminate right lower lobe pulmonary nodule.For patients at low risk (minimal or absent history of smoking and of other known risk factors), no routine follow-up is indicated. For patients at high risk (history of smoking or of other known risk factors), consider optional CT at 12 months. (MacMahon, et al., Fleischner Society, 2017). 4. No aortic dissection. Thank you for allowing us to participate in the care of your patient. Dictated and Authenticated by: Dre Vazquez MD 01/24/2019 12:47 AM Central Time ([place] & [place]) FINAL REPORT CT ANGIOGRAM CHEST WITH CONTRAST: Date: 01/23/19 HISTORY: Chest pain. Low oxygen saturation. COMPARISON: None. TECHNIQUE: CT angiogram chest performed after the intravenous administration of contrast. 3D rendering provided. FINDINGS/IMPRESSION: Findings and impression are concordant with the preliminary report by [facility]. Likely a right-sided linda l parapelvic cyst, less likely hydronephrosis incompletely evaluated. Renal ultrasound may be benefic ial if clinically warranted. POS: RAMSES
[2019-01-24] MEDS: Ferrous Sulfate 325 MG TAB PO SCH (09:58)
[2019-01-24] MEDS: Prenatal Vitamin 1 TAB PO SCH (09:58)
[2019-01-24 11:16] LABS: Cardiac Risk 5.1 (Less than 4.5)
[2019-01-24] MEDS ORDERED: Metoprolol Tartrate 25 MG TAB PO SCH (12:15)
--- NOTE | 2019-01-24 15:29 | CON ---
DATE OF CONSULTATION: 01/24/2019 INDICATION FOR CONSULTATION: A 23-year-old female, who is 26 or 27 weeks , who has been complaining of increasing shortness of breath with dyspnea on exertion, even sometimes with short of breath while talking, short of breath while lying down; however, when I did walk into her room today, she was quite calm. She was sleeping and was breathing very comfortable, lying down flat. Apparently, when she walks in the [place], she does get somewhat short of breath but O2 saturations have remained stable. She did undergo an echocardiogram today, which shows ejection fraction of 55% to 60%. with mild tricuspid and pulmonary valve regurgitation and trace mitral valve regurgitation. The right ventricle did appear to be slightly dilated, which may be due to volume overload. The left atrium also was mildly dilated. Otherwise, she has had no previous cardiac history. She does have some family history of heart disease, but otherwise has been remained stable and has had no history in the past. She has had two previous pregnancies and do not have any significant symptoms. At this time, she seems to be just short of breath. She denies any chest pain, dizziness, lightheadedness, or any other significant abnormalities. PAST MEDICAL HISTORY: Significant for two previous pregnancies and some history of hypoglycemia. She has had dilatation and curettage after miscarriage. SOCIAL HISTORY: There is no history of alcohol or tobacco or drug use. FAMILY HISTORY: Positive for coronary artery disease at early age. Her mother had myocardial infarction at age 29, uncertain about the etiology of this. ALLERGIES: MORPHINE. MEDICATIONS: Include; 1. vitamins. 2. Tylenol. 3. Iron. 4. Aspirin. REVIEW OF SYSTEMS: Her 12-point review of systems unremarkable. PHYSICAL EXAMINATION: GENERAL: Reveals a well-developed, well-nourished female, who is in no acute distress when I arrived in the room. She did appear to be slightly short of breath, which may be in exaggeration while she was speaking. Otherwise, she appears to be very comfortable. VITAL SIGNS: Her blood pressure is 102/58. She is afebrile. Heart rate was anywhere between the 80s to 90s at rest. She had an echocardiogram earlier today, was also in the 80s to 90s. At this time, her heart rate while she is lying in the bed is about 94 beats per minute. HEENT: Shows the head to be normocephalic and atraumatic. Carotid pulses are present. There were no bruits. CHEST: Clear to auscultation without rales, rhonchi, or wheezing. CARDIOVASCULAR: Reveals a regular rate and rhythm. She had a very soft systolic murmur of the aortic area at the upper sternal border, which may be compatible with some mild sclerosis, but did not see this on echocardiogram that would indicate this and most likely this is a benign murmur. There were no heaves or thrills. ABDOMEN: Shows mild obesity. Positive bowel sounds are present. There is evidence of . EXTREMITIES: Showed no clubbing, cyanosis, or edema. Pedal pulses are present. NEUROLOGIC: The patient appears to be fully intact. SKIN: Warm and dry. LABORATORY DATA: Shows a hemoglobin of 10.3 with hematocrit of 30. Her potassium was 3.3, BUN was 5 with a creatinine of 0.5. Her chest x-ray was unremarkable. Echocardiogram is also unremarkable except for some mild dilatation of the left atrium and also possibly mild dilatation of the right ventricle, which may be due just to volume overload in the 27 week female. At this time, from a cardiac standpoint, she appears to be stable. She does have some tachycardia when she exerts herself and I believe a low dose of beta olman may be in order. Otherwise, from my perspective, she could be discharged home on the beta blockers if she tolerates these and we can see her back in the clinic as needed. She could be watched for 24 hours on the beta-olman to see how she tolerates this and see what it does to the heart rate as well as the blood pressure. Otherwise, I believe the cardiac status is stable. Job ID: [id number]
--- NOTE | 2019-01-24 17:27 | PDOC.EVN ---
Event Note - Event Note Event Note: casee discussed with LEO Merida
--- NOTE | 2019-01-24 19:03 | PRG ---
DATE OF SERVICE: 01/24/2019 TIME OF SERVICE: 1845 hours. The patient has had an unremarkable day. She still complains of occasional shortness of breath. Echocardiogram was essentially unremarkable and was consistent with expected cardiac output in late second, early third trimester of a twin . Other evaluations including CT angiogram were within normal limits. Consultation with Dr. Elvira Veloz was obtained which revealed that her agreement the patient most likely is suffering from some degree of anxiety as well as mildly symptomatic from normal increased cardiac output and tachycardia associated with . We will go ahead and start the patient on Toprol 12.5 b.i.d. to help with some rate control and observe the patient overnight to see how she tolerates blood pressure on beta olman. Anticipate discharge home in a.m. Job ID: [id number]
[2019-01-24] MEDS: Metoprolol Tartrate 25 MG TAB PO SCH (21:37)
[2019-01-25 04:22] VITALS: TEMP 98
--- NOTE | 2019-01-25 07:46 | DIS ---
DATE OF ADMISSION: 01/23/2019 DATE OF DISCHARGE: 01/25/2019 HISTORY: This morning, the patient is resting comfortably. She states that she can feel that she feels less jittery and she feels like she can relax more. She reports an active fetus. She denies contractions. She denies lightheadedness with ambulation. PHYSICAL EXAMINATION: VITAL SIGNS: Current pulse is 85, respirations 18, blood pressure 108/54. Pulse has ranged between 96 and 87 since initiation of Toprol 12.5 p.o. b.i.d. LUNGS: Clear to auscultation bilaterally. HEART: Regular rate and rhythm. ABDOMEN: Soft and nontender without rebound or guarding and FHTs are 140s x2. HOSPITAL COURSE: In summary, the patient underwent cardiac evaluation as well as rule out pulmonary embolus during this hospitalization including a CTA, echo, EKG, and Cardiology consult. In the end, it seems that the patient has a mild benign tachycardia ranging from approximately 95 to 110. At rest, it is likely secondary to increased cardiac output with twins in early third trimester without evidence of organic heart disease. She has responded well to Toprol 12.5 p.o. b.i.d. despite the fact that there has not been a large decrease in the patient's pulse. Symptomatically, she feels much better. Since this is really the object of therapy, we will not increase to 25 mg b.i.d. at this time. We will see the patient for close followup in 1 week back in the office. Consider raising the dose at that time. DISCHARGE MEDICATIONS: Toprol 12.5 b.i.d. sent to [facility] via [facility] from [facility] with followup on 02/01/2019, at [facility] as well as every other week ultrasounds with [facility] from [place]. Job ID: [id number]
[2019-01-25 08:03] VITALS: BP 106/56
--- NOTE | 2019-01-25 08:11 | PDOC.CTH ---
Cardiology Progress Note - Subjective The pt seen and examined. No overnight events. No cardiac complaints. The pt reported she could sleep better last night with less palpitation. - Objective Vital Signs Temp Pulse Resp BP BP Pulse Ox 01/25/19 07:54 98.0 F 100 18 106/56 L 98 01/25/19 04:01 98.0 F 96 18 108/54 L 98 01/24/19 23:15 98.1 F 87 18 111/56 L 99 Weight 181 lb 12.8 oz 01/24/19 01/25/19 01/26/19 06:59 06:59 06:59 Intake Total 598 3100 Output Total 325 3300 Balance 273 -200 - Physical Examination General/Neuro: alert & oriented x3 Neck: no JVD present Lungs: CTA Heart: RRR Abdomen: soft Extremities: other: (No edema) - Telemetry Telemetry Rhythm: SR - Labs Result Diagrams: 01/24/19 04:51 01/24/19 04:51 Troponin/CKMB Troponin I Less than 0.010 ng/mL (< 0.028) 01/24/19 04:51 - Assessment/Plan 1. Tachycardia - remains in SR with HR 90s with intermittent tachycardia 100s with Metoprolol 12.5mg BID. The pt stated she could sleep well last night with less palpitation. 2. SOB 2/2 tachycardia - stable with Metoprolol 12.5mg BID MAR reviewed * Echo on 01/24/2019 with EF 55-60%, mild dilated LA, trace MR, mild TR and WA. * From Cardiac standpoint, the pt is stable to d/c home. 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 Review of Systems - Review of Systems Constitutional: reports: no symptoms reported EENTM: reports: no symptoms reported Respiratory: reports: no symptoms reported Cardiac (ROS): reports: no symptoms reported ABD/GI: reports: no symptoms reported : reports: no symptoms reported Musculoskeletal: reports: no symptoms reported Skin: reports: no symptoms reported
[2019-01-25] MEDS ORDERED: Potassium Chloride 20 MEQ TAB PO SCH (09:00)
[2019-01-25] MEDS: Prenatal Vitamin 1 TAB PO SCH (09:29)
[2019-01-25] MEDS: Metoprolol Tartrate 25 MG TAB PO SCH (09:30)
[2019-01-25] MEDS: Ferrous Sulfate 325 MG TAB PO SCH (09:31)
--- NOTE | 2019-01-25 15:41 | EKG ---
Test Reason : Blood Pressure : / mmHG Vent. Rate : 082 BPM Atrial Rate : 082 BPM P-R Int : 154 ms QRS Dur : 098 ms QT Int : 390 ms P-R-T Axes : 035 -10 011 degrees QTc Int : 455 ms Normal sinus rhythm Minimal voltage criteria for LVH, may be normal variant Abnormal ECG Confirmed by WESLEY PORTILLO ([id number]) on 01/25/2019 3:41:01 PM Referred By: Moe CORMIER Confirmed By:WESLEY PORTILLO
== END 2019-01-25 09:54 | disposition home or self-care (01) ==
LOC: L&D/OP 14:51 → 3SW 18:34 → 2SW 01-24 00:42
PROVIDERS: ADMIT Obstetrics & Gynecology; ATTEND Obstetrics & Gynecology
DX: O99.89 Other specified diseases and conditions complicating pregnancy, childbirth and the puerperium (principal); R06.02 Shortness of breath; Z88.5 Allergy status to narcotic agent; I25.10 Atherosclerotic heart disease of native coronary artery without angina pectoris; Z79.82 Long term (current) use of aspirin; Z79.899 Other long term (current) drug therapy
CPT/HCPCS: 36415; 59025; 71046; 71275; 80048; 80053; 80061; 81003; 81015; 83880; 84484; 85025; 85379; 87804; 93005; 93010; 93306; 96360; 96361; 99285; G0378; Q9966

== ENCOUNTER 2019-02-12 22:16 | Day surgery (SDC) | payer BC, OTHER ==
[2019-02-12 22:46] VITALS: BP 114/70; TEMP 98.6; BMI 34.7
[2019-02-12] MEDS ORDERED: Ondansetron ODT 4 MG TAB PO PRN (23:05)
[2019-02-12] MEDS ORDERED: Acetaminophen 325 MG TAB PO SCH (23:15)
--- NOTE | 2019-02-12 23:18 | PDOC.LDHP ---
Labor and Delivery H&P Chief complaint: abdominal pain HPI: 23 yo @ 30 weeks with twin gestation presents for abdominal pain and occasional contractions. She reports she had what she perceived as tereza junior contractions yesterday evening and occasional sharp pain in b/l groin and lower back. She also reports NV yesterday and this am; however, has had occasional NV throughout . Reports pos movement, denies vaginal bleeding, vaginal discharge and LOF. Denies dysuria, urinary frequency and urinary urgency. Denies CVA tenderness. ROS: Gen: Denies fever chills HEENT: Denies headache CV: denies : denies dysuria, urinary frequency and urinary urgency OB: pos movement Abd: reports NV, denies diarrhea and constipation. MSK: reports lower back pain Current gestational age (weeks): 30 Due date: 04/23/19 Dating criteria: last menstrual period Grav: 4 Para: 2 OB History Details: Twin gestation Current complications: di/di twins Abnormal US findings: No Current medications: pre-nichole vitamins Previous surgical history: other (D&C March 2018) Allergies/Adverse Reactions: Allergies Allergy/AdvReac Type Severity Reaction Status Date / Time morphine Allergy Severe Anaphylaxis Verified 01/09/19 20:57 Social history: none - Physical Exam Vital signs reviewed and normal: yes General: NAD, resting Heart: RRR Lungs: nonlabored breathing Abdomen: NTTP (No palpable contractions. No CVA tenderness.) Extremeties: no edema FHT: category 1 (Baby A: 125 baseline pos accels, no late or variability decels , mod variability, reactive Baby B: baseline 120s pos accels, no late or variable decels, mod variability, reactive) Hamill contractions every: None - OB Labs Blood type: unknown RH: unknown Antibody Screen: unknown HIV: unknown RPR: unknown HEPSAg: unknown 1 hour GCT: unknown GBS: unknown Urine drug screen: not done - Plan -: 1) round ligament pain vs tereza junior - no palpable ctx and no ctx detectable on external monitors - reactive FHTs for baby A&B - will rx tylenol and zofran for abd pain and NV - cont to monitor on external monitors and re-assess - if pain improves with PO tylenol and still no evidence of ctx plan for dc to home with OP f/u with Dr Castillo as scheduled this week. Dispo: stable, likely round ligament pain, rx tylenol and cont to monitor. Likely dc to home pending no ctx and improved pain. Addendum - Attending - Attending Attestation Date/Time: 02/15/191957 I personally evaluated the patient and discussed the management with Dr. Betancourt. I agree with the History, Examination, Assessment and Plan documented above.
== END 2019-02-12 23:50 | disposition home or self-care (01) ==
LOC: L&D/OP 22:16
PROVIDERS: ATTEND Obstetrics & Gynecology
DX: O99.89 Other specified diseases and conditions complicating pregnancy, childbirth and the puerperium (principal); R10.2 Pelvic and perineal pain; M54.5 Low back pain; O30.043 Twin pregnancy, dichorionic/diamniotic, third trimester; Z3A.30 30 weeks gestation of pregnancy; Z79.82 Long term (current) use of aspirin; Z79.899 Other long term (current) drug therapy; Z88.5 Allergy status to narcotic agent
CPT/HCPCS: 99282

== ENCOUNTER 2019-02-21 15:35 | Day surgery (SDC) | payer BC, OTHER ==
[2019-02-21 16:41] VITALS: BMI 35.3
--- NOTE | 2019-02-21 17:28 | ER ---
DATE OF SERVICE: 02/21/2019 TIME OF SERVICE: 1625 hours. PRESENTING COMPLAINT: Monochorionic diamniotic twins at 31 to 32 weeks' gestation with mild diarrhea four times a day for the last four days and mild headache. HISTORY OF PRESENT ILLNESS: Ms. Carmichael is a 23-year-old, G2, P2, who sees me at [facility]. She has had 6 previous presentations to Labor and Delivery Unit during this . She reports that she has had mild diarrhea for the last few days with occasional headache. She is tolerating p.o. with only occasional nausea. She denies fever or chills. She reports active fetus. She denies contractions. PHOTOCOPYING MACHINE OPERATOR HISTORY: x2, dichorionic diamniotic twins. PAST MEDICAL HISTORY: Anxiety. SURGICAL HISTORY: D and C. ALLERGIES: MORPHINE. MEDICATIONS: 1. vitamins. 2. Zofran. SOCIAL HISTORY: Denies tobacco, alcohol, or drug use. FAMILY HISTORY: Noncontributory. REVIEW OF SYSTEMS: Noncontributory. PHYSICAL EXAMINATION: GENERAL: White female, in no acute distress. VITAL SIGNS: Blood pressure 110/74, pulse 85, respirations 18, and temperature 98.6. HEENT: Within normal limits. LUNGS: Clear to auscultation bilaterally. HEART: Regular rate and rhythm. ABDOMEN: Soft and nontender. Fundal height of 34 to 35 cm. FHTs 140s and 150s. Category I heart rate tracing x2. No contractions noted. PELVIC: Deferred. EXTREMITIES: No clubbing, cyanosis, or edema. IMPRESSION: Likely, mild viral gastroenteritis at 31 to 32 weeks' gestation. No evidence of labor. PLAN: Reassurance. Discharge home. [id number] Lomotil 1/2 p.o. q.12 hours p.r.n. Keep scheduled followup at [facility] on 03/02/2019. Job ID: [id number]
== END 2019-02-21 17:18 | disposition home health service (06) ==
LOC: L&D/OP 15:35
PROVIDERS: ATTEND Obstetrics & Gynecology
DX: O99.613 Diseases of the digestive system complicating pregnancy, third trimester (principal); R19.7 Diarrhea, unspecified; O99.343 Other mental disorders complicating pregnancy, third trimester; F41.9 Anxiety disorder, unspecified; Z3A.32 32 weeks gestation of pregnancy; Z88.5 Allergy status to narcotic agent; Z79.899 Other long term (current) drug therapy
CPT/HCPCS: 99282

== ENCOUNTER 2019-03-02 15:34 | Day surgery (SDC) | payer BC, OTHER ==
[2019-03-02] MEDS ORDERED: Betamet Acet/Betamet Na Ph 30 MG/5 ML VIAL IM SCH (16:00)
[2019-03-02 16:05] VITALS: BMI 34.7
== END 2019-03-02 16:05 | disposition home or self-care (01) ==
LOC: L&D/OP 15:34
PROVIDERS: ATTEND Obstetrics & Gynecology
DX: O35.8XX9 Maternal care for other (suspected) fetal abnormality and damage, other fetus (principal); Z3A.32 32 weeks gestation of pregnancy; Z79.899 Other long term (current) drug therapy; Z88.5 Allergy status to narcotic agent
CPT/HCPCS: 96372; J0702

== ENCOUNTER 2019-03-03 00:11 | Day surgery (SDC) | payer BC, OTHER ==
[2019-03-03 00:50] VITALS: BP 111/65; TEMP 98.5; BMI 36.1
--- NOTE | 2019-03-03 01:19 | PDOC.LDHP ---
Labor and Delivery H&P Chief complaint: decreased movement, other (Twins (monochorionic by her report)) HPI: Time: 0115 Location: L&D CC: Decreased FM x Twin A HPI: Patint of Dr Castillo, with knowm twin gestation, s/p celestone (first injecton) yesterday at 1600, here for decresaed FM of twin A since steroid. No VB, no LOF. She states had sono today i office with decreased growth of twin A, and slower movement of twin A. Review of Systems: no CTX, no VB, no trauma. Current gestational age (weeks): 32 (5 Days) Dating criteria: last menstrual period Grav: 4 Para: 2 Current complications: mono/di twins Abnormal US findings: Yes (slower growth twin A, states normal "flow" by studies ) Current medications: pre-nichole vitamins, other (Lopressor for tachycardia) Allergies/Adverse Reactions: Allergies Allergy/AdvReac Type Severity Reaction Status Date / Time morphine Allergy Severe Anaphylaxis Verified 03/03/19 00:43 Social history: none - Physical Exam Vital signs reviewed and normal: yes (111/65 107 98.5) General: NAD Heart: RRR Lungs: CTAB Abdomen: gravid Extremeties: no edema [place] contractions every: minumal variability, no decels - Assessment Twins (mono/di, by her verbal report) at 32 weeks 5 days s/p first steroid injection yesterday...has second scheduled for today 03/03/19...here for decresaed FM. - Plan Plan: observation in L&D, other (I have ordered a limited sono to confirm FHTs x 2. The FHTs have decresaed variability. Per ACOG, decreased variability may be due to steroid effect. I reviewed with her that at 32 weeks, even suspicous survellance results would likely result in recheck after 24-48 hours due to EGA. We will keep on monitors for now. Reassurrance at this point.)
--- NOTE | 2019-03-03 01:49 | PDOC.EVN ---
Event Note - Event Note Event Note: Follow up: NST has increased variabiity now... Sono confirms both FHTs TwinB is now lower than original twin A...so A now on maternal right side I reassurred her based on the sono and NST OK to return later today (1600) for second injection.
--- NOTE | 2019-03-03 07:20 | ULT ---
OB ULTRASOUND LIMITED: Date: 03/03/19 INDICATION: Intrauterine twin gestation. Evaluation for viability. FINDINGS: Twin A is documented with cardiac activity at 110 bpm and Twin B at 122 bpm. Evaluation otherwi se limited. IMPRESSION: cardiac activity is documented for each intrauterine gestation. POS: NWK
== END 2019-03-03 02:05 | disposition home or self-care (01) ==
LOC: L&D/OP 00:11
PROVIDERS: ATTEND Obstetrics & Gynecology
DX: Z29.8 Encounter for other specified prophylactic measures (principal); Z3A.32 32 weeks gestation of pregnancy; Z79.899 Other long term (current) drug therapy; Z88.5 Allergy status to narcotic agent
CPT/HCPCS: 59025; 76815; 99282

== ENCOUNTER 2019-03-03 15:44 | Day surgery (SDC) | payer BC, OTHER ==
[2019-03-03 16:11] VITALS: BMI 36.1
[2019-03-03] MEDS ORDERED: Betamet Acet/Betamet Na Ph 30 MG/5 ML VIAL IM SCH (16:30)
--- NOTE | 2019-03-03 16:31 | PDOC.EVN ---
Event Note - Event Note Event Note: Patient returns for repeat celestone dosing but still complains of decreased FM. H&P reviewed from this morning and unchanged. NST reactive x 2. Patient reassured and will follow up as scheduled.
== END 2019-03-03 16:57 | disposition home health service (06) ==
LOC: L&D/OP 15:44 → EDSTATUS 16:00 → L&D/OP 16:57
PROVIDERS: ATTEND Obstetrics & Gynecology
DX: Z29.8 Encounter for other specified prophylactic measures (principal); Z79.899 Other long term (current) drug therapy
CPT/HCPCS: 59025; 76815; 96372; 99282